=== PATIENT | male | born 1985 | race Two or more races ===

== ENCOUNTER 2024-05-09 09:01 | Emergency (ER) | payer OTHER ==
[~2024-05-09] VITALS: Ht 185.4 cm; Wt 83.5 kg
[2024-05-09] MEDS ORDERED: CEFTRIAXONE SODIUM 1,000 MG VIAL IM ONE (09:30)
[2024-05-09] MEDS ORDERED: OFLOXACIN5 ML OP (09:34)
[2024-05-09] MEDS ORDERED: AMOX1TAB5 PO (09:34)
[2024-05-09] MEDS ORDERED: OFLOXACIN 0.3% 5ML DROPS (OTIC) OT ONE (09:45)
== END 2024-05-09 10:10 | disposition home or self-care (01) ==
LOC: ER 09:02
DX: H66.91 Otitis media, unspecified, right ear (principal); I10 Essential (primary) hypertension